=== PATIENT | female | born 1990 | race Asian ===

== ENCOUNTER 2019-04-02 21:26 | Emergency (ER) | payer BC ==
[~2019-04-02] VITALS: Ht 167.6 cm; Wt 59.1 kg
[2019-04-02 22:06] VITALS: Ht 167.6 cm; Wt 59.1 kg
[2019-04-02 22:58] LABS: PLATELET COUNT 191 x10^3mcL (130-400); RED CELL DISTRIBUTION WIDTH 13.6 % (11.5-14.5)
[2019-04-02 23:02] LABS: BASOPHIL % 0 % (0-2)
[2019-04-02 23:03] LABS: CALCIUM 9.8 mg/dL (8.5-10.1); CARBON DIOXIDE 25.4 mmol/L (21-32); CHLORIDE SERUM 103 mmol/L (98-107); CREATININE SERUM 0.8 mg/dL (0.6-1.0); GFR1 > 60 mL/min; GLUCOSE SERUM 107 mg/dL (74-106); POTASSIUM SERUM 3.9 mmol/L (3.5-5.1); SODIUM SERUM 140 mmol/L (136-145)
[2019-04-02 23:08] LABS: ALKALINE PHOSPHATASE 142 U/L (46-116); ALT/SGPT 17 U/L (14-59); AST/SGOT 7 U/L (15-37); BILIRUBIN TOTAL 0.67 mg/dL (0.20-1.00)
[2019-04-02 23:36] VITALS: BP 110/66
== END 2019-04-02 23:36 | disposition home or self-care (01) ==
LOC: ED 21:26
PROVIDERS: Emergency Medicine
DX: J03.90 Acute tonsillitis, unspecified (principal); E86.0 Dehydration; R10.31 Right lower quadrant pain; R11.2 Nausea with vomiting, unspecified
CPT/HCPCS: J2405; J7030